=== PATIENT | female | born 2000 | race Caucasian/White ===

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

== ENCOUNTER 2018-10-25 08:19 | Emergency (ER) | payer OTHER ==
[~2018-10-25] VITALS: Ht 165.1 cm; Wt 49.9 kg
[~2018-10-25 08:19] MED LIST changes: +ZOFRAN ODT4 MG PO
[2018-10-25 08:51] LABS: ABSOLUTE EOSINOPHILS 0.1 thou/uL (0.0-0.7); ABSOLUTE LYMPHOCYTES 2.8 thou/uL (0.8-5.3); ABSOLUTE MONOCYTES 0.8 thou/uL (0.0-1.2); BASOPHILS 0.6 %; EOSINOPHILS 0.7 %; HEMATOCRIT 43.2 % (37.0-47.0); HEMOGLOBIN 14.6 gm/dL (12.0-15.0); MCH 29.9 pg (26.0-34.0); MCHC 33.9 g/dL (28.0-37.0); MCV 88.3 fL (80.0-100.0); MPV 8.9 fl. (7.2-11.1); NUCLEATED RBCS 0 /100WBC; PLATELET COUNT* 232 thou/uL (150-400); POLYS 52.7 %; RBC 4.89 mil/uL (4.20-5.00); RDW-CV 13.4 % (10.5-14.5); WBC 7.7 thou/uL (4.0-11.0)
[2018-10-25 09:18] LABS: ALBUMIN 4.2 g/dL (3.4-5.0); CALCIUM 9.2 mg/dL (8.5-10.1); TOTAL BILIRUBIN 0.6 mg/dL (<0.1-1.0); TOTAL PROTEIN 7.7 g/dL (6.4-8.2)
[2018-10-25] MEDS ORDERED: ZOFRAN ODT4 MG DISSOLVE (10:13)
[2018-10-25] MEDS ORDERED: HYDROCODONE-AP1 EAC6 PO (10:13)
[2018-10-25 10:18] VITALS: BP 120/63
== END 2018-10-25 10:18 | disposition home or self-care (01) ==
LOC: M.ERS 08:19
PROVIDERS: Emergency Medicine Emergency Medical Services
DX: R10.31 Right lower quadrant pain (principal); R11.2 Nausea with vomiting, unspecified; F31.9 Bipolar disorder, unspecified; F41.9 Anxiety disorder, unspecified

== ENCOUNTER 2019-08-06 16:04 | Emergency (ER) | payer OTHER ==
[~2019-08-06] VITALS: Ht 165.1 cm; Wt 45.4 kg
[~2019-08-06 16:04] MED LIST changes: +HYDROCODONE-AP1 EAC6 PO; +ZOFRAN ODT4 MG DISSOLVE
[2019-08-06 17:45] LABS: INFLUENZA A ANTIGEN Negative (Negative); INFLUENZA B ANTIGEN Negative (Negative)
[2019-08-06] MEDS ORDERED: PREDNISONE 20 M20 MG PO (18:27)
[2019-08-06] MEDS ORDERED: VENTOLIN HFA 1818 GM INH (18:27)
[2019-08-06] MEDS ORDERED: AMOXICILLIN 50500 MG PO (18:27)
[2019-08-06] MEDS ORDERED: TESSALON PERLE100 MG PO (18:27)
[2019-08-06 18:38] VITALS: BP 119/67
== END 2019-08-06 18:38 | disposition home or self-care (01) ==
LOC: M.ERS 16:04
PROVIDERS: Emergency Medicine
DX: J20.9 Acute bronchitis, unspecified (principal); F32.9 Major depressive disorder, single episode, unspecified; F41.9 Anxiety disorder, unspecified; F17.200 Nicotine dependence, unspecified, uncomplicated

== ENCOUNTER 2019-10-01 13:20 | Emergency (ER) | payer OTHER ==
[~2019-10-01] VITALS: Ht 162.6 cm; Wt 49.9 kg
[~2019-10-01 13:20] MED LIST changes: +PREDNISONE 20 M20 MG PO; +TESSALON PERLE100 MG PO; +VENTOLIN HFA 1818 GM INH
[2019-10-01 13:49] LABS: URINE BILIRUBIN NEGATIVE (Negative); URINE BLOOD 2+ (Negative); URINE COLOR YELLOW; URINE GLUCOSE-RANDOM NEGATIVE (Negative); URINE KETONES TRACE (Negative); URINE LEUKOCYTES-REFLEX NEGATIVE (Negative); URINE NITRITE-REFLEX NEGATIVE (Negative); URINE PROTEIN TRACE (Negative); URINE SPECIFIC GRAVITY >= 1.030 (1.005-1.030); URINE UROBILINOGEN 0.2 E.U./dl (0.2-1.0)
[2019-10-01 13:50] LABS: URINE CLARITY HAZY
[2019-10-01 13:59] LABS: SQUAMOUS 4-10 Moderate /LPF (0-3)
[2019-10-01 14:00] LABS: BACTERIA-REFLEX None Seen /HPF (None Seen); CASTS None Seen /LPF (None Seen); CRYSTALS None Seen /LPF (None Seen); MUCUS 0-3 Light strn/LPF (None Seen); URINE RBC 3-10 Few /HPF (0-2); URINE WBC-REFLEX 0-5 Rare /HPF (0-5)
[2019-10-01 14:01] LABS: ABSOLUTE LYMPHOCYTES 2.2 thou/uL (0.8-5.3); ABSOLUTE MONOCYTES 0.5 thou/uL (0.0-1.2); ABSOLUTE NEUTROPHILS 4.6 thou/uL (1.6-8.1); BASOPHILS 0.6 %; EOSINOPHILS 0.2 %; HEMATOCRIT 40.2 % (37.0-47.0); LYMPHOCYTES 30.2 %; MCHC 34.7 g/dL (28.0-37.0); MCV 89.3 fL (80.0-100.0); MONOCYTES 6.5 %; MPV 7.9 fl. (7.2-11.1); NUCLEATED RBCS 0 /100WBC; PLATELET COUNT* 238 thou/uL (150-400); POLYS 62.5 %; RDW-CV 12.9 % (10.5-14.5); WBC 7.4 thou/uL (4.0-11.0)
[2019-10-01 14:09] LABS: CALCIUM 8.5 mg/dL (8.5-10.1); CREATININE 0.9 mg/dL (0.6-1.3); POTASSIUM 4.6 mmol/L (3.5-5.1)
[2019-10-01 14:14] LABS: ALBUMIN 3.8 g/dL (3.4-5.0); TOTAL BILIRUBIN 0.3 mg/dL (<0.1-1.0)
[2019-10-01] MEDS ORDERED: NAPROSYN500 MG PO (14:25)
[2019-10-01] MEDS ORDERED: ONDANSETRON HCL4 M2 PO (14:25)
[2019-10-01 14:38] VITALS: BP 115/75
== END 2019-10-01 14:38 | disposition home or self-care (01) ==
LOC: M.ERS 13:20
PROVIDERS: Nurse Practitioner Family
DX: N94.6 Dysmenorrhea, unspecified (principal); F31.9 Bipolar disorder, unspecified; F41.9 Anxiety disorder, unspecified

== ENCOUNTER 2019-11-02 14:18 | Emergency (ER) | payer OTHER ==
[~2019-11-02] VITALS: Ht 165.1 cm; Wt 49.0 kg
[~2019-11-02 14:18] MED LIST changes: +NAPROSYN500 MG PO; +ONDANSETRON HCL4 M2 PO
[2019-11-02] MEDS ORDERED: MOBIC7.5 MG PO (17:48)
[2019-11-02] MEDS ORDERED: TYLENOL WITH CO1 TA1 PO (17:48)
[2019-11-02] MEDS ORDERED: LIDODERM1 EACH TOP (17:48)
[2019-11-02 17:59] VITALS: BP 119/74
== END 2019-11-02 18:01 | disposition home or self-care (01) ==
LOC: M.ERS 14:18
DX: S13.4XXA Sprain of ligaments of cervical spine, initial encounter (principal); M54.5 Low back pain; R51 Headache; F41.9 Anxiety disorder, unspecified; F32.9 Major depressive disorder, single episode, unspecified; F12.10 Cannabis abuse, uncomplicated; Z79.899 Other long term (current) drug therapy; V43.12XA Car passenger injured in collision with other type car in nontraffic accident, initial encounter; Y93.89 Activity, other specified; Y92.481 Parking lot as the place of occurrence of the external cause; Y99.8 Other external cause status

== ENCOUNTER 2019-12-20 19:05 | Emergency (ER) | payer OTHER ==
[~2019-12-20] VITALS: Ht 172.7 cm; Wt 49.9 kg
[~2019-12-20 19:05] MED LIST changes: +LIDODERM1 EACH TOP; +MOBIC7.5 MG PO; +TYLENOL WITH CO1 TA1 PO
[2019-12-20 19:29] LABS: ABSOLUTE LYMPHOCYTES 1.6 thou/uL (0.8-5.3); ABSOLUTE MONOCYTES 0.6 thou/uL (0.0-1.2); ABSOLUTE NEUTROPHILS 11.8 thou/uL (1.6-8.1); BASOPHILS 0.1 %; HEMATOCRIT 43.5 % (37.0-47.0); LYMPHOCYTES 11.5 %; MCH 30.3 pg (26.0-34.0); MCHC 34.4 g/dL (28.0-37.0); MCV 88.3 fL (80.0-100.0); MONOCYTES 4.5 %; MPV 8.3 fl. (7.2-11.1); NUCLEATED RBCS 0 /100WBC; PLATELET COUNT* 279 thou/uL (150-400); POLYS 83.9 %; RBC 4.93 mil/uL (4.20-5.00); RDW-CV 13.4 % (10.5-14.5); WBC 14.1 thou/uL (4.0-11.0)
[2019-12-20 19:37] LABS: AMP/METHAMP Negative (Negative); BARBITURATES Negative (Negative); BENZODIAZEPINES Negative (Negative); COCAINE Negative (Negative); METHADONE Negative (Negative); OPIATES Negative (Negative); PCP Negative (Negative); THC POSITIVE (Negative)
[2019-12-20 19:43] LABS: URINE BILIRUBIN NEGATIVE (Negative); URINE BLOOD NEGATIVE (Negative); URINE CLARITY CLEAR; URINE COLOR YELLOW; URINE GLUCOSE-RANDOM NEGATIVE (Negative); URINE KETONES 1+ (Negative); URINE LEUKOCYTES-REFLEX NEGATIVE (Negative); URINE NITRITE-REFLEX NEGATIVE (Negative); URINE PROTEIN 2+ (Negative); URINE SPECIFIC GRAVITY 1.025 (1.005-1.030); URINE UROBILINOGEN 0.2 E.U./dl (0.2-1.0)
[2019-12-20 19:54] LABS: CALCIUM 8.4 mg/dL (8.5-10.1); CREATININE 0.8 mg/dL (0.6-1.3); POTASSIUM 3.7 mmol/L (3.5-5.1); TOTAL BILIRUBIN 0.4 mg/dL (<0.1-1.0); TOTAL PROTEIN 7.6 g/dL (6.4-8.2)
[2019-12-20 19:57] LABS: BACTERIA-REFLEX 1-9 Few /HPF (None Seen); CASTS None Seen /LPF (None Seen); CRYSTALS None Seen /LPF (None Seen); MUCUS >6 Heavy strn/LPF (None Seen); SQUAMOUS 0-3 Few /LPF (0-3); URINE RBC 0-2 Rare /HPF (0-2); URINE WBC-REFLEX 0-5 Rare /HPF (0-5)
[2019-12-20] MEDS ORDERED: ZOFRAN ODT4 MG PO (21:22)
[2019-12-20] MEDS ORDERED: HYDROCODON-ACE1 EAC8 PO (21:22)
[2019-12-20 21:27] VITALS: BP 115/70
== END 2019-12-20 21:35 | disposition home or self-care (01) ==
LOC: M.ERS 19:05
PROVIDERS: Emergency Medicine
DX: R10.2 Pelvic and perineal pain (principal); R10.31 Right lower quadrant pain; R10.32 Left lower quadrant pain; R11.2 Nausea with vomiting, unspecified; F31.9 Bipolar disorder, unspecified; F41.9 Anxiety disorder, unspecified

== ENCOUNTER 2020-07-30 12:37 | Emergency (ER) | payer OTHER ==
[~2020-07-30] VITALS: Ht 165.1 cm; Wt 47.6 kg
[~2020-07-30 12:37] MED LIST changes: +HYDROCODON-ACE1 EAC8 PO
[2020-07-30 14:13] VITALS: BP 140/78
== END 2020-07-30 14:14 | disposition home or self-care (01) ==
LOC: M.ERS 12:37
DX: R50.9 Fever, unspecified (principal); Z20.828 Contact with and (suspected) exposure to other viral communicable diseases

== ENCOUNTER 2021-03-02 09:50 | Emergency (ER) | payer OTHER ==
[~2021-03-02] VITALS: Ht 162.6 cm; Wt 50.8 kg
[2021-03-02] MEDS ORDERED: APAP W/CODEINE1 TA2 PO (11:14)
[2021-03-02 11:24] VITALS: BP 127/71
== END 2021-03-02 11:25 | disposition home or self-care (01) ==
LOC: M.ERS 09:50
DX: M65.4 Radial styloid tenosynovitis [de Quervain] (principal)

== ENCOUNTER 2021-09-14 09:53 | Emergency (ER) | payer BC ==
[~2021-09-14] VITALS: Ht 162.6 cm; Wt 49.9 kg
[~2021-09-14 09:53] MED LIST changes: +APAP W/CODEINE1 TA2 PO
[2021-09-14 10:23] LABS: URINE BILIRUBIN NEGATIVE (Negative); URINE BLOOD NEGATIVE (Negative); URINE CLARITY CLEAR; URINE COLOR YELLOW; URINE GLUCOSE-RANDOM NEGATIVE (Negative); URINE KETONES NEGATIVE (Negative); URINE LEUKOCYTES-REFLEX NEGATIVE (Negative); URINE NITRITE-REFLEX NEGATIVE (Negative); URINE PROTEIN NEGATIVE (Negative); URINE UROBILINOGEN 0.2 E.U./dl (0.2-1.0)
[2021-09-14 10:45] LABS: INFLUENZA A ANTIGEN Negative (Negative); INFLUENZA B ANTIGEN Negative (Negative)
[2021-09-14] MEDS ORDERED: PROAIR HFA8.5 GM INH (11:29)
[2021-09-14 11:41] VITALS: BP 138/81
== END 2021-09-14 11:42 | disposition home or self-care (01) ==
LOC: M.ERS 09:53
PROVIDERS: Physician Assistant
DX: K64.4 Residual hemorrhoidal skin tags (principal); J06.9 Acute upper respiratory infection, unspecified; R68.83 Chills (without fever); R11.2 Nausea with vomiting, unspecified; F32.9 Major depressive disorder, single episode, unspecified; F41.9 Anxiety disorder, unspecified; F17.210 Nicotine dependence, cigarettes, uncomplicated; Z91.048 Other nonmedicinal substance allergy status